=== PATIENT | male | born 1990 | race Caucasian/White ===

== ENCOUNTER 2021-12-17 20:10 | Emergency (ER) | payer SELFPAY ==
[~2021-12-17] VITALS: Ht 180.3 cm; Wt 72.6 kg
[2021-12-17 20:29] VITALS: BP 136/92
[2021-12-17] MEDS ORDERED: NAPROXEN 500 MG TABLET PO SCH (20:30)
--- NOTE | 2021-12-17 20:30 | NUR ---
BIBS C/O RT RIB INJURY S/P FALL. AMBULATORY, SEATED AT CHAIR, AAOX4, BREATHING EVEN AND UNLABORED.
[2021-12-17] MEDS ORDERED: NAPROXEN 250 MG TABLET ONE (21:07)
[2021-12-17] MEDS ORDERED: NAPR-1009 PO (21:45)
--- NOTE | 2021-12-17 21:50 | NUR ---
Patient discharged to home in stable condition. Written and verbal after care instructions given. Patient verbalizes understanding of instruction.
== END 2021-12-17 21:50 | disposition home or self-care (01) ==
LOC: ER 20:16
DX: S20.211A Contusion of right front wall of thorax, initial encounter (principal); W18.30XA Fall on same level, unspecified, initial encounter; Y93.89 Activity, other specified; Y92.89 Other specified places as the place of occurrence of the external cause; Y99.8 Other external cause status
CPT/HCPCS: 71100-TC